=== PATIENT | male | born 1995 ===

== ENCOUNTER 2017-03-24 18:30 | Emergency (ER) | payer MEDICAID ==
[~2017-03-24] VITALS: Ht 170.2 cm; Wt 89.5 kg
[2017-03-24 18:45] VITALS: Ht 170.2 cm; Wt 89.5 kg
[2017-03-24] MEDS ORDERED: LIDOCAINE 1% (MDV) 20 ML INJ SC ONE (20:30)
[2017-03-24] MEDS ORDERED: DIPHTH/TET/ACEL PERTUSS (ADULT) 0.5 ML VIAL IM* ONE (20:30)
[2017-03-24] MEDS ORDERED: IBUP-1542 PO (20:46)
[2017-03-24] MEDS ORDERED: CEPH-443 PO (20:46)
--- NOTE | 2017-03-24 20:50 | ERD ---
ER Documentation Chief Complaint Date/Time DATE: 03/24/17 TIME: 20:47 Chief Complaint something his L forearm today HPI This 21-year-old male presents with a puncture wound to his left forearm. He is working somewhat in likely sustained a splinter foreign body. Denies restricted range of motion or weakness. Tetanus is not up-to-date. ROS All systems reviewed and are negative except as per history of present illness. Medications Home Meds Active Scripts Cephalexin* (Keflex*) 500 Mg Capsule, 500 MG PO QID for 5 Days, CAP Prov:OLU BENAVIDES MD 03/24/17 Ibuprofen* (Motrin*) 600 Mg Tab, 600 MG PO Q6, #15 TAB Prov:OLU BENAVIDES MD 03/24/17 Allergies Allergies: Coded Allergies: No Known Allergy (Unverified , 03/24/17) PMhx/Soc Medical and Surgical Hx: pt denies Medical Hx, pt denies Surgical Hx Hx Alcohol Use: Yes Hx Substance Use: No Hx Tobacco Use: No Smoking Status: Never smoker Physical Exam Vitals Vital Signs Date Time Temp Pulse Resp B/P Pulse Ox O2 Delivery O2 Flow Rate FiO2 03/24/17 18:45 98.9 75 18 146/85 99 Physical Exam Const: [], [id number]. Head: Atraumatic Eyes: Normal Conjunctiva ENT: Normal External Ears, Nose and Mouth. Neck: Full range of motion..~ No meningismus. Resp: Clear to auscultation bilaterally Cardio: Regular rate and rhythm, no murmurs Abd: Soft, non tender, non distended. Normal bowel sounds Skin: No petechiae or rashes. Palpable approximately 2.4 cm foreign body under the 4 arm associated with a approximately 3 mm puncture wound. No erythema, discharge. Back: No midline or flank tenderness Ext: No cyanosis, or edema no appreciable weakness. Neur: Awake and alert Psych: Normal Mood and Affect Results 24 hrs Current Medications Medications (Trade) Dose Ordered Sig/Selam Route PRN Reason Start Time Stop Time Status Last Admin Dose Admin Lidocaine (Xylocaine 1% (Mdv) 20 ml) 20 ml ONCE ONCE SC 03/24/17 20:30 03/24/17 20:31 DC Diphtheria/ Tetanus/Acell Pertussis (Adacel) 0.5 ml ONCE ONCE IM* 03/24/17 20:30 03/24/17 20:31 DC Procedures/MDM Given a tetanus booster. Seizure note-left forearm was prepped with Betadine. 2 cc of lidocaine was used for local infiltration. Incision was made with a #11 scalpel. Via blunt dissection a large splinter approximately 2.3 cm was removed. There is no palpable foreign body after procedure. Wound was then dressed. Patient was treated with Keflex and Motrin at home and instructions for 2 day wound check for signs of infection. Radiologic studies were deferred given the non-radiopaque nature of the foreign body foreign body was clinically removed in its entirety. Patient should however return for new or worsening symptoms as directed. Departure Diagnosis: Primary Impression: Foreign body (FB) in soft tissue Condition: Stable Patient Instructions: Foreign Body, Soft Tissue (Removed) Additional Instructions: CHEQUE EN 2 POPE PARA PRADEEP QURESHI NUEVE SIMPTOMAS TEEHEE, KEVIN N. MD Mar 24, 2017 20:50
== END 2017-03-24 20:51 | disposition home or self-care (01) ==
LOC: FTE 18:30
DX: S50.852A Superficial foreign body of left forearm, initial encounter (principal); W45.8XXA Other foreign body or object entering through skin, initial encounter; Y92.89 Other specified places as the place of occurrence of the external cause; Z23 Encounter for immunization
CPT/HCPCS: 10120; 90471; 90715; Z7502; Z7610